=== PATIENT | male | born 1960 | race Two or more races ===

== ENCOUNTER 2018-03-20 15:39 | Emergency (ER) | payer OTHER ==
--- NOTE | 2018-03-20 17:26 | EDPHY ---
HPI/HX/ROS/PE/MDM Narrative: CHIEF COMPLAINT: Left ankle injury HISTORY OF PRESENT ILLNESS: This is a 57 y/o male with a history of diabetes complaining of left ankle pain secondary to a fall off a ladder while at work today. He says the ladder slipped in the rain, which caused him to fall to the ground from about 5 feet up. As he fell his left foot was still hooked on the ladder causing it to twist and he landed on his lower back. When he tried to stand up he saw his ankle was turned slightly laterally. He denies striking his head, loss of consciousness, neck pain, abdominal pain, chest pain, pelvis pain , or any other extremity injuries. He does have some mild lower back pain. No knee pain. No fever, chills, chest pain, shortness of breath, palpitations, vomiting, diarrhea, urinary complaints, headache, lightheadedness. History obtained via use of [place] cavalry officer. REVIEW OF SYSTEMS: Aside from elements discussed in the HPI, a comprehensive 10-point review of systems was reviewed and is negative. PAST MEDICAL HISTORY: Diabetes - insulin; hypercholesterolemia; hypertension. Compliant with medications. SOCIAL HISTORY: Primarily Mosotho-speaking, speaks some Serbian. Workman's comp injury. VITAL SIGNS: Reviewed by me; see NN. GENERAL: Well-developed, well-nourished, pleasant, reports moderate pain. HEENT: Head: Atraumatic, normocephalic. Face: Atraumatic. PERRL, EOMI, no nystagmus. Oropharynx: No trauma, normal occlusion. Neck: Nontender to palpation, no pain with range of motion, no adenopathy. CHEST: Nontender, no subcutaneous air palpable. LUNGS: Clear to auscultation bilaterally, breath sounds are equal. CARDIAC: Regular rate and rhythm, no rubs, murmurs or gallops. ABDOMEN: Soft, nontender, nondistended. BACK: No CVA tenderness, mild L3-L4 tenderness. EXTREMITIES: Left ankle: diffusely swollen, slightly dusky, tenderness over medial and lateral malleoli, held in external rotation, ROM deferred. Tenderness to anterior manriquez. Otherwise extremities are atraumatic with normal range of motion. PULSES: 2+ and equal throughout. NEURO: Alert and oriented x3, cranial nerves are intact throughout, normal motor , normal sensation. SKIN: Warm and dry, no rash. Portions of this note were transcribed by a medical communication specialist. I personally performed a history, physical exam, medical decision making, and confirmed accuracy of information the transcribed note. ED Course: This is a well-appearing 57 y/o male with a history of diabetes who presents with a left ankle injury and lumbar back pain secondary to a mechanical fall off a ladder in the rain today. He has diffusely swollen left ankle with tenderness over medial and lateral malleoli and held in slight external rotation. He is neurovascularly intact. Plan for imaging and pain management. 1 tab [place] ordered. Left ankle x-ray: trimalleolar fracture Left tib/fib x-ray: no fracture above ankle Lumbar spine x-ray: degenerative changes, nothing acute 1739: Consulted with Dr. Liang, orthopedist. He will review films and will see patient in his office for follow up tomorrow. Post-splint x-rays demonstrate worsening alignment of fractures fragments. Splint was removed. Indication: Fracture reduction of the left ankle joint. Risks, benefits, alternatives discussed with the patient and consent obtained. The trimalleolar left ankle fracture was reduced and realigned with traction and manipulation. Patient tolerated the procedure well. Patient was medicated with oral pain medications Post reduction the patient's neurovascular exam is normal. Post reduction x-ray improved fracture fragment alignment The procedure was performed by myself. Script for Percocet provided and return precautions discussed. Reducing System Operator assisted with discharge. Dr. Liang reviewed the patient's ankle x-rays and is comfortable with plan of discharge following the fracture manipulation and the splinting. MDM: Differential diagnosis for the patient's injury was considered including but not limited to contusion, abrasion, laceration, fracture, open fracture, or dislocation. - Data Points Imaging Results: Imaging Impressions Ankle X-Ray 03/20/18 16:43 Impression: 1. Trimalleolar fracture left ankle with mild posterior lateral displacement distal components. 2. Vascular calcifications evident. This is more than expected for patient of this age. Consider possibility of underlying diabetes. Lumbar Spine X-Ray 03/20/18 17:34 Impression: 1. Multilevel degenerative disk disease lumbar spine most prominent at L1-L2 and at L5-S1 with associated marginal osteophytes. 2. No acute osseous abnormality seen. Tibia/Fibula X-Ray 03/20/18 17:34 Impression: Trimalleolar left ankle fracture. Please see ankle x-ray report. Ankle X-Ray 03/20/18 18:43 Impression: Worse post splinting alignment. A message was left for Dr. Le at 19:11 PM. Ankle X-Ray 03/20/18 20:21 Impression: Improvement. The ankle mortise is now nearly anatomic. Imaging: Discussed imaging studies w/ machine scallop cutter Radiologist, I viewed and interpreted images myself Laboratory Results: 03/20/18 19:57 POC Glucose 293 mg/dL H mg/dL (70-100) Medications Given: Discontinued Medications Oxycodone/Acetaminophen (Percocet 5/325) 2 tab PO EDNOW ONE Stop: 03/20/18 17:35 Last Admin: 03/20/18 17:41 Dose: 2 tab Point of Care Test Results: Chemistry 03/20/18 19:57 POC Glucose 293 mg/dL H mg/dL (70-100) General Time Seen by Provider: 03/20/18 17:04 Initial Vital Signs: Initial Vital Signs Temperature (C) 36.8 C 03/20/18 15:48 Heart Rate 97 03/20/18 15:48 Respiratory Rate 16 03/20/18 15:48 Blood Pressure 114/69 03/20/18 15:48 O2 Sat (%) 94 03/20/18 15:48 O2 Delivery Mode Room Air Allergies/Adverse Reactions: No Known Allergies Allergy (Unverified 03/20/18 15:46) Home Medications: Medication Instructions Recorded Aspirin 325 mg (*) 03/20/18 Enalapril Maleate 03/20/18 Insulin Regular Human 03/20/18 Pravastatin Sodium 03/20/18 oxyCODONE/APAP 5/325 [Percocet 1 - 2 tab PO Q6H PRN #14 tab 03/20/18 5/325 (*)] Departure - Departure Disposition: Home, Routine, Self-Care Clinical Impression: Trimalleolar fracture Qualifiers: Encounter type: initial encounter Fracture type: closed Laterality: left Qualified Code(s): S82.852A - Displaced trimalleolar fracture of left lower leg , initial encounter for closed fracture Condition: Good Instructions: Ankle Fracture (ED) Additional Instructions: 1. Follow up with Dr. Liang, orthopedist, tomorrow in his office. Call first thing in the morning to schedule this appointment. 2. Keep splint clean, dry, and in place until directed otherwise by Dr. Liang. 3. Use crutches as directed, do not bear weight on your left leg until you receive further instruction from Dr. Liang. 4. Apply ice to sore areas intermittently, elevate leg above the level of your heart when possible. 5. Use Percocet as prescribed when needed for severe pain. This medication can make you drowsy and constipated. Do not use prior to driving or operating machinery. 6. Return to the ED for severe pain, weakness or numbness in your toes, severe headache, abdominal pain, or any other worsening of condition. 1. Angela seguimiento con el Dr. Liang, Ortopedico, maana en [place] oficina. Llame temprano en la maana para hacer [place] swapnil. 2. Mantenga la ferula limpia, seca, y puesta hasta que kiel al Dr. Liang. 3. Use las muletas patel le ensearon, no ponga peso en la pierna izquierda hasta que le indique el Dr. Liang. 4. Aplique hielo en el area adolorida, eleve la pierna mas alto que el nivel del nisreen cuando pueda. 5. Use Percocet para el dolor reinaldo. [place] le puede causar sueo y estre imiento. No use si va a manejar o operar maquinaria pesada. 6. Regrese a la esequiel de emergencia si tiene dolor reinaldo, debilidad o los dedos del pie dormidos, dolor de omayra reinaldo, dolor abdominal, o si [place] condicion empeora. Referrals: Rosendo Liang MD [Medical Doctor] - As per Instructions Prescriptions: oxyCODONE/APAP 5/325 [Percocet 5/325 (*)] 1 - 2 tab PO Q6H PRN #14 tab PRN Reason: Pain, Severe Report Scribed for: Juliana Le Report Scribed by: Rosario Arora Date of Report: 03/20/18 Time of Report: 17:26
[2018-03-20] MEDS ORDERED: OXYCODONE/APAP 5/325 TAB PO ONE (17:34)
[2018-03-20 21:14] VITALS: BP 125/78
== END 2018-03-20 21:12 | disposition home or self-care (01) ==
LOC: MERGE 15:39
PROC: 0QSHXZZ Reposition Left Tibia, External Approach (ICD-10-PCS; principal; 2018-03-20)
DX: S82.852A Displaced trimalleolar fracture of left lower leg, initial encounter for closed fracture (principal); I10 Essential (primary) hypertension; E11.9 Type 2 diabetes mellitus without complications; Z79.4 Long term (current) use of insulin; Z79.82 Long term (current) use of aspirin; W11.XXXA Fall on and from ladder, initial encounter; Y99.0 Civilian activity done for income or pay; Y93.89 Activity, other specified

== ENCOUNTER 2018-03-27 07:47 | Emergency (ER) | payer OTHER ==
--- NOTE | 2018-03-27 08:16 | EDPHY ---
H & P Time Seen by Provider: 03/27/18 07:58 HPI/ROS: HPI Left ankle pain. Left ankle fracture. 57-year-old male by private vehicle. This patient was seen in our emergency department on March 20. He sustained a closed left ankle trimalleolar fracture after falling from a ladder. His tib-fib x-rays were negative. His LS spine x-rays were negative. The fracture was reduced and he was placed in an Ortho Glass splint. The treating emergency physician, Dr. Juliana Le, spoke with the on-call orthopedic surgeon Dr. Liang. Follow-up was arranged. Dr. Liang reviewed the films and instructed Dr. Le to discharge the patient after splinting with plan for follow-up in his office. The patient states that he did go to Dr. Liang's office last week as instructed but they wanted a down payment and he did not have the money. Therefore care was reportedly declined. He went back to his primary care physician at [facility] and was told to come to the emergency department here this morning for further treatment. He complains of pain to the anterior medial aspect of the left leg. He denies significant ankle pain, loss of sensation or other complaints. No new injury. ROS: Constitutional: No fever, no chills. No weakness. Eyes: No discharge. No changes in vision. ENT: No sore throat. No nasal congestion or rhinorrhea. Respiratory: No cough. No shortness of breath. Cardiac: No chest pain, no palpitations. Gastrointestinal: No abdominal pain, no vomiting, no diarrhea. Genitourinary: No hematuria. No dysuria or increased frequency with urination. Musculoskeletal: No back pain. No neck pain. As above. Skin: No rashes. Neurological: No headache. No focal weakness or altered sensation. Past medical history: Insulin-dependent diabetes, hypertension, hyperlipidemia. Social history: Nonsmoker. No alcohol. Currently here by himself. Physical Exam: General Appearance: Alert, no distress. This patient is responding to questions appropriately and in full sentences. This patient appears well- hydrated and well-nourished. Eyes: Pupils equal and round no pallor or injection. No lid edema, erythema or injection. Left lower extremity exam: The ortho glass splint was taken down. His cause of pain is a blister that has formed and ruptured secondary to a pressure point from his ortho glass splint on the distal 1/3 of the leg anterior medial aspect. There is no evidence of associated infection. No surrounding erythema or edema. No purulence. The ankle does not appear significantly swollen given his injury. The skin is otherwise intact. There is faint ecchymosis involving the lateral and medial malleolus. The left foot is neurovascularly intact and without evidence of a neurovascular injury. Neurological: Motor sensory function is grossly intact. Cranial nerves are normal. Skin: Warm and dry, no rashes. Musculoskeletal: Neck is supple and nontender. Extremities are symmetrical except noted. All joints range without pain or impingement except noted. Psychiatric: No agitation. No depression. Database: EKG: Imaging: Procedures: Emergency department course: Vital signs reviewed. The patient is moderately hypertensive. Vital signs otherwise normal. Patient afebrile. Ortho glass splint taken down during my evaluation as noted above. Blister is concerning given his history of diabetes. There is no evidence of infection. Case management will be involved to arrange for proper follow-up for this patient. I explained to the patient that his blister wound needed to be checked every day for evidence of infection. 10:30 a.m., the patient has been seen by case management. He has been placed in a [place] boot. He has crutches. Follow-up has been arranged for him to see Dr. Liang of the Orthopedic service tomorrow. Follow-up has also been arranged with [facility] for wound care and close following of his left leg blister. He understands the follow-up plan. Return to emergency department precautions have been reviewed with him. All of his questions were answered. He was discharged from the emergency department in good condition. Differential Diagnosis: The differential diagnosis on this patient includes but is not limited to failure to follow up with Orthopedics status post left trimalleolar fracture, blister left leg secondary to splint pressure pole. Cellulitis last infection, neurovascular injury, new fracture unlikely. This represents a partial list of diagnoses considered. These considerations are based on history, physical exam , past history, reassessment and diagnostic testing. Smoking Status: Never smoked Constitutional: Initial Vital Signs Temperature (C) 36.7 C 03/27/18 07:52 Heart Rate 87 03/27/18 07:52 Respiratory Rate 16 03/27/18 07:52 Blood Pressure 173/80 H 03/27/18 07:52 O2 Sat (%) 96 03/27/18 07:52 O2 Delivery Mode Room Air Allergies/Adverse Reactions: No Known Allergies Allergy (Verified 03/27/18 07:52) Home Medications: Medication Instructions Recorded Aspirin 325 mg (*) 03/20/18 Enalapril Maleate 03/20/18 Insulin Regular Human 03/20/18 Pravastatin Sodium 03/20/18 oxyCODONE/APAP 5/325 [Percocet 1 - 2 tab PO Q6H PRN #14 tab 03/20/18 5/325 (*)] Departure - Departure Disposition: Home, Routine, Self-Care Clinical Impression: Trimalleolar fracture of left ankle, Blister of left leg Condition: Good Instructions: Ankle Fracture (ED), Blister (ED) Additional Instructions: Read and follow provided instructions. The blister under left leg must be watched closely for evidence of infection. The dressing should be changed daily. You should follow-up with your [facility] primary care physician to have this rechecked tomorrow. Repase y siga las indicaciones que se le entregaron. La ampolla debajo de [place] pierna izquierda debe ser revisada muy de cerca para alguna evidencia de infeccion. El vendaje debe ser cambiado a diario. Debe hacer seguimiento con [place] medico de cabecera en la [facility] para que lo revisen de nuevo maana. Follow-up with Dr. Liang of the Orthopedic service as scheduled tomorrow for evaluation and further management of your ankle fracture. Angela seguimiento con [place] medico de cabecera dentro de 1 a 2 olson para juan c reevaluacion. Take medication as prescribed. [place] medicamento av patel fue indicado. Return to the emergency department for worsening pain, discoloration to your left ankle, swelling, loss of sensation or other serious concerns. Regrese al departamento de emergencia si empeoran los sintomas o por cualquier otra preocupacion seria. No weight-bearing to your left ankle. Use crutches as instructed. Referrals: [facility] [Clinic] - As per Instructions Rosendo Liang MD [Medical Doctor] - As per Instructions
[2018-03-27 10:09] VITALS: BP 144/66
--- NOTE | 2018-03-27 16:19 | ASDISCHSUM ---
Discharge Information Plan Status:Home with No Needs Medically Cleared to Leave: Discharge Date:03/27/2018 10:54 AM CM D/C Disposition:Home, Routine, Self-Care ADT D/C Disposition:Home, Routine, Self-Care Projected Discharge Date:03/27/2018 10:54 AM Transportation at D/C:None or Unknown Discharge Delay Reason: Follow-Up Date:03/27/2018 10:54 AM Discharge Slot: Final Diagnosis: Placement Information Patient Contact Information Contact Name:KELI Relationship:Cristino Address: Work Phone: City:[place] Alternate Phone: State/Zip Code:[place] Email: Financial Information Financial Class:Self-Pay Primary Plan Desc:[employer] [employer] Primary Plan Number:[id number] Secondary Plan Desc: Secondary Plan Number: Assessment Information Intervention Information Intervention Type:Post Acute Communication Date of Service:03/27/2018 04:16 PM Patient Type:Emergency Room Staff Member:JOSTIN Dickson [place] Hours:0.75 Discipline:Liquor Clerk Severity: Comment:Called and scheduled follow-up apt for pt w/Dr Liang at [facility] tomorrow 03/28/18 at 9a.m. Confirmed th at a full time staff interpreter will be at the appt to assist w/translation. Intervention Type:Health Clinic Date of Service:03/27/2018 04:16 PM Patient Type:Emergency Room Staff Member:JOSTIN Dickson [place] Hours:0.25 Discipline:Liquor Clerk Severity: Comment:Spoke w/ [facility] in [place] and they will reach out to patient to schedule a follow-up appt.
== END 2018-03-27 10:54 | disposition home or self-care (01) ==
LOC: MERGE 07:47
DX: S82.852D Displaced trimalleolar fracture of left lower leg, subsequent encounter for closed fracture with routine healing (principal); E11.9 Type 2 diabetes mellitus without complications; W11.XXXD Fall on and from ladder, subsequent encounter; Y99.0 Civilian activity done for income or pay; Y93.89 Activity, other specified
CPT/HCPCS: L4386